=== PATIENT | male | born 1990 | race Caucasian/White ===

== ENCOUNTER 2022-11-18 15:03 | Outpatient (CLI) | payer BC, SELFPAY | END 2022-11-18 15:04 | disposition home or self-care (01) | PROVIDERS: PCP Family Medicine; Visit Provider Family Medicine | DX: E89.0 Postprocedural hypothyroidism (principal); R35.89 Other polyuria; R07.9 Chest pain, unspecified; R63.1 Polydipsia | CPT/HCPCS: 80053; 84443; 87086 ==

== ENCOUNTER 2022-12-15 14:50 | Outpatient (CLI) | payer BC, SELFPAY | END 2022-12-15 14:51 | disposition home or self-care (01) | PROVIDERS: PCP Family Medicine; Visit Provider Family Medicine | DX: Q87.40 Marfan syndrome, unspecified (principal); R07.9 Chest pain, unspecified | CPT/HCPCS: 93306 ==